=== PATIENT | male | born 1990 | race Caucasian/White ===

== ENCOUNTER 2016-05-14 12:05 | Emergency (ER) | payer SELFPAY ==
--- NOTE | 2016-05-14 12:35 | ER Document Report ---
ED Substance Abuse / Acc. OD - General Chief Complaint: Possible Overdose Stated Complaint: POSSIBLE OVERDOSE Notes: The patient is a 26-year-old male who presents by EMS after he was found unresponsive by his mom. He was breathing ~4 times a minute, according to his mom. Bystanders started CPR. EMS arrived and gave him 2 mg intranasal Narcan and he woke immediately up. Patient is only complaining about nausea and vomiting at this time. He said he took 3 oxycodone pills and a Xanax earlier today. He said this was for recreational use and because he is addicted. Patient denies suicidality times and said that this was an accidental overdose. Patient does not want to be referred for substance abuse counseling at this time. Denies chest pain, shortness of breath, abdominal pain, fevers or rash. TRAVEL OUTSIDE OF THE [place] IN LAST 30 DAYS: No - Related Data Allergies/Adverse Reactions: No Known Allergies Allergy (Verified 05/14/16 12:40) Past Medical History - General Information source: Patient, Emergency Med Personnel - Social History Smoking Status: Unknown if Ever Smoked Family History: Reviewed & Not Pertinent Review of Systems - Review of Systems Notes: REVIEW OF SYSTEMS: CONSTITUTIONAL: -fevers, -chills EENT: -eye pain, -difficulty swallowing, -nasal congestion CARDIOVASCULAR:-chest pain, -syncope. RESPIRATORY: -cough, -SOB GASTROINTESTINAL: -abdominal pain, +nausea, +vomiting, -diarrhea GENITOURINARY: -dysuria, -hematuria MUSCULOSKELETAL: -back pain, -neck pain SKIN: -rash or skin lesions. HEMATOLOGIC: -easy bruising or bleeding. LYMPHATIC: -swollen, enlarged glands. NEUROLOGICAL: -altered mental status or loss of consciousness, -headache, - neurologic symptoms PSYCHIATRIC: +substance abuse, -anxiety, -depression. ALL OTHER SYSTEMS REVIEWED AND NEGATIVE. Physical Exam - Vital signs Vitals: Resp Pulse Ox 15 96 05/14/16 12:18 05/14/16 12:18 - Notes Notes: PHYSICAL EXAMINATION: GENERAL: Well-appearing, well-nourished and in no acute distress. HEAD: Atraumatic, normocephalic. EYES: Pupils equal round and reactive to light, extraocular movements intact, sclera anicteric, conjunctiva are normal. ENT: nares patent, oropharynx clear without exudates. Moist mucous membranes. NECK: Normal range of motion, supple without lymphadenopathy LUNGS: Breath sounds clear to auscultation bilaterally and equal. No wheezes rales or rhonchi. HEART: Regular rate and rhythm without murmurs ABDOMEN: Soft, nontender, normoactive bowel sounds. No guarding, no rebound. No masses appreciated. EXTREMITIES: Normal range of motion, no pitting or edema. No cyanosis. NEUROLOGICAL: Cranial nerves grossly intact. Normal speech, normal gait. Normal sensory, motor, and reflex exams. PSYCH: Normal mood, normal affect. SKIN: Warm, Dry, normal turgor, no rashes or lesions noted. Course - Re-evaluation Re-evalutation: After Narcan, patient is in no respiratory distress and only complaining of nausea and vomiting. Patient repeatedly denies suicidality. Offered patient multiple times substance abuse counseling and detox referral, but patient defers at this time. 05/14/16 15:55 Patient observed in the emergency room and no respiratory distress occurred. He is completely symptomatic at this time. Once again asked patient if he was suicidal or homicidal and he denies it. Mental health provided resources for outpatient detox. - Vital Signs Vital signs: Temp Pulse Resp BP Pulse Ox 97.7 F 97 13 119/71 94 05/14/16 12:26 05/14/16 12:26 05/14/16 15:01 05/14/16 15:01 05/14/16 15:01 - Laboratory Result Diagrams: 05/14/16 12:21 05/14/16 12:21 Laboratory results interpreted by me: 05/14/16 05/14/16 12:21 12:21 WBC 15.5 H Absolute Neutrophils 11.6 H Glucose 176 H ALT 83 H Creatine Kinase 266 H Salicylates 1.9 L Acetaminophen < 10 L - EKG Interpretation by [place] EKG shows normal: Sinus rhythm, [place], Intervals, QRS Complexes, ST-T Waves Discharge - Discharge Clinical Impression: Polysubstance (excluding opioids) dependence, daily use Overdose Qualifiers: Encounter type: initial encounter Injury intent: accidental or unintentional Qualified Code(s): T50.901A - Poisoning by unspecified drugs, medicaments and biological substances, accidental (unintentional), initial encounter Disposition: HOME, SELF-CARE Additional Instructions: Go to detox to get 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 If thoughts of killing herself, return immediately to the emergency room. Do not take medications that are not prescribed to you. Drug Toxicity A drug you're taking is causing toxic effects. Most drugs can cause medical problems at higher doses. Sometimes toxic symptoms occur even when taking normal amounts. This is not a drug allergy. Drugs can build up to toxic levels through interaction with other drugs or foods. If the liver or kidney don't eliminate the drug as fast as expected, drug levels increase. Sometimes, toxic effects occur because two medicines add together in a harmful way. Symptoms of drug toxicity can include stomach symptoms (nausea and vomiting , cramps, diarrhea, bloating, constipation), dryness of mouth and eyes, urination difficulty, neurological symptoms (confusion, agitation, drowsiness, lightheadedness, occasionally seizures), palpitations (irregular or rapid heartbeat), or muscular symptoms (muscle spasms, weakness, twitching, aches). Most of the time, toxic effects go away when the level of drug decreases. If it's important that you continue this medicine, we usually ask patients to skip a dose or two, then restart the drug at a lower dose. Don't take alcohol or other medicines without consulting your doctor. Call us if the symptoms don't go away, or if you develop trouble breathing , lightheadedness, shortness of breath, or chest pain. Overdose You have taken more medication than you should have. After your evaluation and care, it is felt that your overdose is not likely to be harmful or of any significant consequences to you and you are being discharged. In the future, you should be careful not to take more medications than what is prescribed for you. Although your overdose does not seem to be of any danger to you at this time, if you develop any unusual or unexpected symptoms after your discharge, you should return to the Emergency Department immediately for re-evaluation.
[2016-05-14] MEDS ORDERED: ONDANSETRON HCL INJ/PF 4 MG/2 ML SDV IV ONE (12:43)
[2016-05-14 13:00] LABS: ABSOLUTE BASOPHILS # (AUTO) 0.1 10^3/uL (0.0-0.2); ABSOLUTE EOSINOPHILS # (AUTO) 0.1 10^3/uL (0.0-0.6); ABSOLUTE LYMPHOCYTES (AUTO) 3.1 10^3/uL (0.5-4.7); ABSOLUTE MONOCYTES (AUTO) 0.7 10^3/uL (0.1-1.4); ABSOLUTE NEUT (AUTO) 11.6 10^3/uL (1.7-8.2); BASOPHILS % (AUTO) 0.4 % (0-2); EOSINOPHILS % (AUTO) 0.4 % (0-6); HEMATOCRIT 46.5 % (37.9-51.0); HEMOGLOBIN 15.7 g/dL (13.5-17.0); HGB HCT DIFFERENCE 0.6; LYMPHOCYTES % (AUTO) 20.1 % (13-45); MEAN CORPUSCULAR HEMOGLOBIN 31.4 pg (27.0-33.4); MEAN CORPUSCULAR HGB CONC 33.7 g/dL (32.0-36.0); MEAN CORPUSCULAR VOLUME 93 fl (80-97); MONOCYTES % (AUTO) 4.3 % (3-13); RED BLOOD COUNT 4.99 10^6/uL (4.35-5.55); SEGMENTED NEUTROPHILS % (AUTO) 74.8 % (42-78); WHITE BLOOD COUNT 15.5 10^3/uL (4.0-10.5)
[2016-05-14 13:08] LABS: ALANINE AMINOTRANSFERASE 83 U/L (21-72); ALBUMIN 4.1 g/dL (3.5-5.0); ALKALINE PHOSPHATASE 61 U/L (38-126); ANION GAP 12 (5-19); ASPARTATE AMINO TRANSFERASE 49 U/L (17-59); BILIRUBIN,TOTAL 0.4 mg/dL (0.2-1.3); BLOOD UREA NITROGEN 10 mg/dL (7-20); CALCIUM 9.2 mg/dL (8.4-10.2); CARBON DIOXIDE 27 mmol/L (22-30); CHLORIDE 101 mmol/L (98-107); CREATINE KINASE 266 U/L (55-170); CREATININE RESULT 0.95 mg/dL (0.52-1.25); GLUCOSE 176 mg/dL (75-110); LIPASE 44.3 U/L (23-300); POTASSIUM 4.1 mmol/L (3.6-5.0); SODIUM 139.8 mmol/L (137-145); TOTAL PROTEIN 6.8 g/dL (6.3-8.2)
[2016-05-14 13:15] LABS: ALCOHOL < 10 mg/dL (NONE DETECTED)
[2016-05-14 14:02] LABS: URINE BARBITURATES SCREEN NEGATIVE; URINE METHADONE SCREEN NEGATIVE; URINE OPIATES LOW UNCONFIRMED POSITIVE; URINE PHENCYCLIDINE SCREEN NEGATIVE
[2016-05-14 16:04] VITALS: BP 137/66
--- NOTE | 2016-05-14 18:38 | EKG REPORT ---
SEVERITY:- ABNORMAL ECG - SINUS RHYTHM NONSPECIFIC INTRAVENTRICULAR CONDUCTION DELAY : Confirmed by: Arina Bunn 14-May-2016 18:37:00
== END 2016-05-14 16:03 | disposition home or self-care (01) ==
LOC: ER 12:05
DX: F19.20 Other psychoactive substance dependence, uncomplicated (principal); T50.901A Poisoning by unspecified drugs, medicaments and biological substances, accidental (unintentional), initial encounter; R11.2 Nausea with vomiting, unspecified
CPT/HCPCS: 93005; 99284; 96374; 36415; 80307 ×4; 82550; 83690; 85025; 80076; 80048; 93010; J2405